=== PATIENT | male | born 2000 | race Caucasian/White ===

== ENCOUNTER → 2022-01-16 | Outpatient (CLI) | payer BC ==
--- NOTE | 2022-01-16 16:59 | RAD ---
EXAM: XR EXAM OF ANKLE_RIGHT 3VIEWS 01/16/2022 1:00 PM CLINICAL INDICATION: Kicked in right ankle, playing soccer COMPARISON: None TECHNIQUE: 3 views of the right ankle FINDINGS: No acute fracture or malalignment. Ankle mortise is symmetric and talar dome is intact. Mi ld lateral soft tissue swelling. IMPRESSION: No acute osseous abnormality. Mild lateral soft tissue swelling. Electronically signed by: Lesley Oseguera MD (01/16/2022 4:56 PM) [id number]
== END ==
LOC: RAD 12:49
PROVIDERS: ATTEND Nurse Practitioner Family
DX: S99.911A Unspecified injury of right ankle, initial encounter (principal); M79.89 Other specified soft tissue disorders; X58.XXXA Exposure to other specified factors, initial encounter; Y93.89 Activity, other specified; Y92.89 Other specified places as the place of occurrence of the external cause; Y99.8 Other external cause status
CPT/HCPCS: 73610